=== PATIENT | female | born 1990 | race Caucasian/White ===

== ENCOUNTER → 2022-09-25 | Outpatient (CLI) | payer MEDICAID, SELFPAY ==
[2022-09-25 10:53] LABS: Absolute Lymphocyte Count 1.54 X10^3/uL (0.83-4.51); Absolute Neutrophil Count 3.2 X10^3/uL (2.0-7.7); Basophil# 0.03 X10^3/uL; Basophil% 0.6 % (0-1); Eosinophil# 0.08 X10^3/uL; Eosinophils% 1.5 % (0-5); Hemoglobin 13.6 g/dL (12.0-15.0); Lymphocyte # 1.54 X10^3/ul (0.83-4.51); Lymphocyte % 28.5 % (19-41); Mean Corp Hgb Conc 33.2 g/dL (32-36); Mean Corpuscular Hgb 31.3 pg (27.0-32.0); Mean Corpuscular Volume 94.5 fL (81-99); Mean Platelet Vol. 10.5 fl (6.2-12.0); Monocyte# 0.53 X10^3/uL; Monocyte% 9.8 % (0-10); NRBC Flagged by Analyzer 0 % (0-5); Neutrophil # 3.21 X10^3/uL (2.7-7.7); Neutrophil % 59.2 % (47-70); Platelet Count 240 K/mm3 (150-450); RBC Distribution Width CV 12.1 % (11.6-14.6); RBC Distribution Width SD 42.3 fl (35.1-43.9); Red Blood Count 4.34 M/mm3 (4.2-5.4); White Blood Count 5.4 K/mm3 (4.4-11.0)
[2022-09-25 11:00] LABS: Erythrocyte Sedimentation Rate 36 mm/hr (0-30)
[2022-09-25 11:19] LABS: AST(SGOT) 22 U/L (15-37); Alanine Aminotransfer ALT/SGPT 34 U/L (13-56); Albumin, Serum 3.9 g/dL (3.2-5.0); Alkaline Phosphatase 84 U/L (45-117); Amylase 38 U/L (25-115); Anion Gap 7 (5-15); BUN 12 mg/dL (7-18); BUN/Creat Ratio 17.9 RATIO (10-20); Chloride 105 mmol/L (98-107); Creatinine, Serum 0.67 mg/dL (0.55-1.02); EST Glomerular Filtration Rate 110 mL/min (>60); Est Glom Filt Rate - Afr Amer 133 mL/min (>60); Globulin 3.9 g/dL (2.2-4.2); Glucose 90 mg/dL (74-106); LDH 199 U/L (84-246); Lipase 116 U/L (73-393); Protein, Total 7.8 g/dL (6.4-8.2); Sodium Level 136 mmol/L (136-145)
[2022-09-27 16:08] LABS: Endomysial Antibody IgA Negative (Negative)
[2022-09-27 19:37] LABS: Immunoglobulin A 259 mg/dL (87-352); t-Transglutaminase IgA 3 U/mL (0-3)
[2022-09-30 15:07] LABS: Albumin 3.9 g/dL (2.9-4.4); Alpha-1-Globulins 0.3 g/dL (0.0-0.4); Alpha-2-Globulins 0.8 g/dL (0.4-1.0); Cytoplasmic Ab (C-ANCA) <1:20 titer (Neg:<1:20); Gamma Globulin 1.2 g/dL (0.4-1.8); Immunoglobulin A 268 mg/dL (87-352); Immunoglobulin E 14 IU/mL (6-495); Immunoglobulin G 1061 mg/dL (586-1602); Immunoglobulin M 142 mg/dL (26-217); PROEL- TOTAL PROTEIN 7.5 g/dL (6.0-8.5)
[2022-10-01 08:08] LABS: Alternaria alternata <0.10 kU/L (Class 0); Anti-Centromere B Ab <0.2 AI (0.0-0.9); Anti-Chromatin <0.2 AI (0.0-0.9); Anti-Jo <0.2 AI (0.0-0.9); Anti-Scleroderma-70 AB <0.2 AI (0.0-0.9); Aspergillus fumigatus <0.10 kU/L (Class 0); Bahia Grass <0.10 kU/L (Class 0); Beef <0.10 kU/L (Class 0); Bermuda Grass <0.10 kU/L (Class 0); Bluegrass, Kentucky <0.10 kU/L (Class 0); Cat Hair/Dander, Standard <0.10 kU/L (Class 0); Cedar, Mountain <0.10 kU/L (Class 0); Cladosporium herbarum <0.10 kU/L (Class 0); Cockroach, American <0.10 kU/L (Class 0); Corn <0.10 kU/L (Class 0); D farinae Mite <0.10 kU/L (Class 0); D pteronyssinus <0.10 kU/L (Class 0); Dog Epithelia <0.10 kU/L (Class 0); Egg, Whole <0.10 kU/L (Class 0); Elm, American White <0.10 kU/L (Class 0); Hazelnut Tree <0.10 kU/L (Class 0); Hickory, White <0.10 kU/L (Class 0); Johnson Grass <0.10 kU/L (Class 0); Maple/Box Elder <0.10 kU/L (Class 0); Milk (Cow) <0.10 kU/L (Class 0); Mucor racemosus <0.10 kU/L (Class 0); Mugwort <0.10 kU/L (Class 0); Mulberry, White <0.10 kU/L (Class 0); Nettle <0.10 kU/L (Class 0); Oak, White <0.10 kU/L (Class 0); Peanut <0.10 kU/L (Class 0); Penicillium chrysogen <0.10 kU/L (Class 0); Pigweed, Rough <0.10 kU/L (Class 0); Plantain, English <0.10 kU/L (Class 0); Pork <0.10 kU/L (Class 0); RNP Ab 0.3 AI (0.0-0.9); Ragweed, Short/Common <0.10 kU/L (Class 0); SJOGREN'S Anti-SS-A test < 0.2 AI (0.0-0.9); SJOGREN'S Anti-SS-B test < 0.2 AI (0.0-0.9); Sheep Sorrel(Dock) <0.10 kU/L (Class 0); Smith Ab <0.2 AI (0.0-0.9); Soybean <0.10 kU/L (Class 0); Stemphylium herbarum <0.10 kU/L (Class 0); Sweet Gum <0.10 kU/L (Class 0); Sycamore, American <0.10 kU/L (Class 0); Wheat <0.10 kU/L (Class 0)
[2022-10-01 14:53] LABS: Anti-dsDNA Ab 3 IU/mL (0-9); Chocolate <0.10 kU/L (Class 0)
[2022-10-01 15:11] LABS: Perinuclear Ab (P-ANCA) <1:20 titer (Neg:<1:20)
== END | disposition home or self-care (01) ==
LOC: LAB 10:13
PROVIDERS: PCP Student in an Organized Health Care Education/Training Program; Referring Provider Internal Medicine Gastroenterology; Visit Provider Internal Medicine Gastroenterology
DX: K62.5 Hemorrhage of anus and rectum (principal); R10.9 Unspecified abdominal pain
CPT/HCPCS: 36415; 80053; 82150; 82784; 82785; 83516; 83615; 83690; 84165; 85025; 85652; 86003; 86005; 86140; 86225; 86235; 86255; 86256; 86334

== ENCOUNTER → 2022-11-20 | Outpatient (CLI) | payer MEDICAID, SELFPAY ==
[2022-11-25 18:33] LABS: Pancreatic Elastase, Fecal 422 (>200)
== END | disposition home or self-care (01) ==
PROVIDERS: PCP Student in an Organized Health Care Education/Training Program; Referring Provider Internal Medicine Gastroenterology; Visit Provider Internal Medicine Gastroenterology
DX: K62.5 Hemorrhage of anus and rectum (principal); R10.9 Unspecified abdominal pain; K58.9 Irritable bowel syndrome, unspecified
CPT/HCPCS: 83993; 82653; 82705; 83630; 87177; 87209; 87329; 87493; 87506

== ENCOUNTER 2022-11-21 07:03 | Day surgery (SDC) | payer MEDICAID, SELFPAY ==
[2022-11-21 07:35] LABS: Internal QC Validated? YES +Cl - CLEAR BKGD; Pregnancy, Urine Negative Negative
[2022-11-21 07:39] VITALS: BP 134/88; PULSE 93; RESP 18; TEMP 36.3; O2SAT 97; BMI 62.7
[2022-11-21] MEDS: Lactated Ringers 1,000 ML 15 ML IV (07:42)
--- NOTE | 2022-11-21 08:09 | HP.PCM_ITS ---
History and Physical Date of Admission: 11/21/22 MARCIA ROSA, is a 32 F who presents to the office today for Initial consult. Marcia established with this clinic 09.25.22 with referral from PCP for upper abdominal discomfort/pain daily with postprandial abdominal cramping and loose stools. Stools are typically loose and occur 3-4 times a day: this has been ongoing for several years. Approximately once a month these symptoms intensity and rectal bleeding will be an issue: spontaneously resolves after several days. PCP started omeprazole which was unhelpful. She saw another GI who determined she does not have hemorrhoids, but did not help with symptoms. Elimination diets ineffective. CT abd/pel IV only at [facility] 05.14.20 without abnormality seen US abd 03.04.22 [facility] without acute/chronic abnormality. ROS Const Constitutional: No anorexia, fatigue, fever(s), weight change or sleep problems Eyes Eyes: No change in vision ENT ENT: No abnormal hearing, difficulty swallowing, mouth lesions, tongue swelling or throat swelling Resp Respiratory: No cough or shortness of breath Cardio Cardiology: No chest pain at rest, chest pain with exertion, shortness of breath or dyspnea on exertion Gastro GI: No difficulty swallowing Genitourinary-Female: No difficulty urinating or burning urination Musc Musculoskeletal: No joint pain, joint swelling, muscle weakness or decreased muscle mass Skin Skin: No hair loss in leg, yellowing of the eye, itchy eyes, rash, skin ulcer or skin swelling Neuro Neurology: No abnormal hearing, abnormal movements, confusion, unsteady gait/balance or memory loss Psych Psychiatric: No anxiety, No confusion and No memory loss Endo Endocrine: No fatigue or weight change Aller/Imm Allergy/Immunologic: No itchy eyes, throat swelling or tongue swelling Juan/Lymp Hematologic/Lymphatic: No easy bleeding, easy bruising or enlarged lymph nodes Exam Const General: cooperative and comfortable Nutritional Appearance: average body habitus and well nourished [facility] Head: normal to inspection Ears: hearing grossly normal bilaterally Nose: external nose normal Face and sinus: normal facial exam Mouth: oral mucosae normal Throat: posterior oropharynx normal Eyes General: appearance normal, both eyes and all related structures Neck Neck: normal visual inspection Chest Chest palpation & inspection: normal inspection of the chest and normal palpation of entire chest wall Resp Effort & Inspection: normal respiratory effort Auscultation: Bilateral: Clear to Auscultation Cardio Palpation: normal PMI Rate: regular rate Rhythm: regular rhythm GI Inspection: normal to inspection Auscultation: normal bowel sounds Percussion: normal to percussion Palpation: no hepatosplenomegaly Skin General: no rashes or lesions noted Neuro General: patient alert Extrem General: normal to inspection Psych Affect: normal affect Quality Reporting Tobacco Screening ([facility] 138) Smoking Status: Never smoker Assessment and Plan Assessment and Plan (1) Rectal bleeding: ?Status:?Chronic ?Plan: The differential diagnosis for her lower GI bleeding does include ulcerative colitis, ulcerative proctitis.? She does have psoriasis which does increase her risk of having ulcerative colitis.? She does not have any other rash.? She denies any eye symptoms.? She has no history of liver or pancreatic issues.? She does have mostly diarrhea on a daily basis which is worse with eating.? She does not know her family history in regards to anybody with any GI symptoms.? She does not take any blood thinners on a daily basis.? She has no history of blood clots.? She has a regular menstrual periods but is not on control.? She does not notice that her bleeding or diarrhea is worst during any particular time except with eating.? Her weight has been stable.? She has not had any surgeries.? She feels like her symptoms of diarrhea and lower GI bleeding are getting worse.? We will send her down for stool analysis to make sure there is no infectious enterocolitis or colitis.? We will also send her for a CBC to look for any signs of eosinophilia, ESR and CRP to make sure that there is no acute inflammation.? She will also undergo an EGD and colonoscopy for evaluation of her upper and lower GI tract with biopsies. (2) Abdominal pain: ?Status:?Chronic ?Plan: She is having upper GI symptoms that is refractory to omeprazole therapy.? The differential diagnosis for abdominal pain and gastroesophageal reflux disease would be bile induced gastritis.? Also there is a possibility of gluten enteropathy or celiac sprue disease.? She will get an upper endoscopy to evaluate her upper GI tract.? In the interim I will give her Levsin therapy on a scheduled basis in order to help her cramping and diarrhea symptoms.? I will also give her low-dose steroids to see if it has any improvement in her symptoms after she gives on stool test. ? ? ? Orders: Orders Comprehensive Metabolic Profil Today K62.5 - Hemorrhage of anus and rectum, R10.9 - Unspecified abdominal pain ? CRP Today K62.5 - Hemorrhage of anus and rectum, R10.9 - Unspecified abdominal pain ? LDH Today K62.5 - Hemorrhage of anus and rectum, R10.9 - Unspecified abdominal pain ? CBC W/Diff, Automated Today K62.5 - Hemorrhage of anus and rectum, R10.9 - Unspecified abdominal pain ? Erythrocyte Sed Rate Today K62.5 - Hemorrhage of anus and rectum, R10.9 - Unspecified abdominal pain ? ROSSY Comprehensive Panel Today K62.5 - Hemorrhage of anus and rectum, R10.9 - Unspecified abdominal pain ? Calprotectin, Stool Today K62.5 - Hemorrhage of anus and rectum, R10.9 - Unspecified abdominal pain ? Stool Lactoferrin/WBC Today K62.5 - Hemorrhage of anus and rectum, R10.9 - Unspecified abdominal pain ? ANCA Today K62.5 - Hemorrhage of anus and rectum, R10.9 - Unspecified abdominal pain ? Celiac Disease Profile Today K62.5 - Hemorrhage of anus and rectum, R10.9 - Unspecified abdominal pain ? Immunoglobulins G/A/M/E Today K62.5 - Hemorrhage of anus and rectum, R10.9 - Unspecified abdominal pain ? ABHI + Protein Elect, Serum Today K62.5 - Hemorrhage of anus and rectum, R10.9 - Unspecified abdominal pain ? Miscellaneous Lab Procedure Today K62.5 - Hemorrhage of anus and rectum, R10.9 - Unspecified abdominal pain ? Amylase Today K62.5 - Hemorrhage of anus and rectum, R10.9 - Unspecified abdominal pain ? Lipase Today K62.5 - Hemorrhage of anus and rectum, R10.9 - Unspecified abdomi nal pain ? Allergens, Zone 8 Today K62.5 - Hemorrhage of anus and rectum, R10.9 - Unspecified abdominal pain ? Allergen, Rast Food Profile Today K62.5 - Hemorrhage of anus and rectum, R10.9 - Unspecified abdominal pain ? Fecal Fat, Qualitative Today K62.5 - Hemorrhage of anus and rectum, R10.9 - Unspecified abdominal pain ? OVA+PARA w/Giardia EIA [id number] Today K62.5 - Hemorrhage of anus and rectum, R10.9 - Unspecified abdominal pain ? CDIFF (PCR) Today K62.5 - Hemorrhage of anus and rectum, R10.9 - Unspecified abdominal pain ? ENTERIC PATHOGEN PANEL STOOL Today K58.9 - Irritable bowel syndrome without diarrhea, K62.5 - Hemorrhage of anus and rectum, R10.9 - Unspecified abdominal pain ? Pancreatic Elastase, Fecal Today K62.5 - Hemorrhage of anus and rectum, R10.9 - Unspecified abdominal pain ? I have examined the patient and the H&P has been reviewed. There are no clinical changes since date of exam.
--- NOTE | 2022-11-21 08:15 | EGD_PTH ---
PATIENT: MARCIA ROSA LOC: EN U#:[id number] AGE/SX: 32/F ROOM: RE11/21/[address]: Dr. Piotr Carson DO : 1990 BED: DIS: 11/21/2022 SPEC #: [id number] RECD: 11/21/22 09:38 STATUS: CHARLEY REBlanche #: [id number] HEIDI: 11/21/22 08:[address]: Piotr Carson DEPT: SURGICAL PATHOLOGY RECD BY: Cherie Berumen ENTERED: 11/21/22 11:59 SP TYPE: EGD BIOPSY OT DR: Dr. Skip Quinones DO Tissues: A - Esophagus, NOS B - Ileum, NOS C - COLON BIOPSY Procedures: Special Stain Group II Surgery Specimen Level IV Alcian Blue/PAS (control) HEADER OPERATION: Colonoscopy, EGD ([facility] [place]) with biopsies PRE-OP DIAGNOSIS: Rectal bleeding, abdominal pain TISSUE SUBMITTED: A - Distal esophagus biopsy, B - Terminal ileum biopsy, C - Random colon biopsy MICROSCOPIC DIAGNOSIS A. Distal esophagus, biopsy: Fragment of gastric mucosa with chronic inflammation. No evidence of goblet cell metaplasia. See comment. B. Terminal ileum, biopsy: No pathologic change. C. Colon, random biopsy: No pathologic change. AM:chel 11/22/2022 COMMENT A. Alcian blue/PAS stain with matched control supports the above diagnosis. MICROSCOPIC DESCRIPTION Slides are reviewed. GROSS DESCRIPTION A - Received in fixative is one container labeled with the patient's name and designated distal esophagus biopsy. The specimen consists of one irregular fragment of light murphy soft tissue that measures 0.3 x 0.3 x 0.1 cm. The specimen is totally submitted in one cassette. B - Received in fixative is one container labeled with the patient's name and designated terminal ileum biopsy. The specimen consists of two irregular fragments of light murphy soft tissue that in aggregate measure 0.6 x 0.3 x 0.1 cm. The specimen is totally submitted in one cassette. C - Received in fixative is one container labeled with the patient's name and designated random colon biopsy. The specimen consists of multiple irregular fragments of light murphy soft tissue that in aggregate measure 0.8 x 0.6 x 0.1 cm. The specimen is totally submitted in one cassette. / IRENE:chel 11/21/2022 TC:3 CPT: 65432 x3, 95180
[2022-11-21 08:45] VITALS: BP 106/58; BP 134/88; PULSE 74; RESP 16; TEMP 36.3; O2SAT 99
--- NOTE | 2022-11-21 08:47 | OP.EGD_ITS ---
Patient Name: Srikanth Palacios Procedure Date: 11/21/2022 8:07 AM Date of : 1990 Age: 32 Procedure: Upper GI endoscopy Indications: Epigastric abdominal pain, Functional Dyspepsia Providers: Piotr Carson DO Referring MD: Skip Quinones Do Medicines: Monitored Anesthesia Care Patient Profile: This is a 32 year old female. Refer to note in patient chart for documentation of history and physical. Patient has symptoms of chronic abdominal cramping, chronic abdominal distention and acute global abdominal pain. Complications: No immediate complications. Procedure: Pre-Anesthesia Assessment: - Prior to the procedure, a History and Physical was performed, and patient medications and allergies were reviewed. The patient is competent. The risks and benefits of the procedure and the sedation options and risks were discussed with the patient. All questions were answered and informed consent was obtained. Patient identification and proposed procedure were verified by the physician in the pre-procedure area. Mental Status Examination: normal. Prophylactic Antibiotics: The patient does not require prophylactic antibiotics. Prior Anticoagulants: The patient has taken no previous anticoagulant or antiplatelet agents. ASA Grade Assessment: II - A patient with mild systemic disease. After reviewing the risks and benefits, the patient was deemed in satisfactory condition to undergo the procedure. The anesthesia plan was to use monitored anesthesia care (MAC). Immediately prior to administration of medications, the patient was re-assessed for adequacy to receive sedatives. The heart rate, respiratory rate, oxygen saturations, blood pressure, adequacy of pulmonary ventilation, and response to care were monitored throughout the procedure. The physical status of the patient was re-assessed after the procedure. After obtaining informed consent, the endoscope was passed under direct vision. Throughout the procedure, the patient's blood pressure, pulse, and oxygen saturations were monitored continuously. The pediatric colonoscope was introduced through the mouth, and advanced to the second part of duodenum. The upper GI endoscopy was accomplished without difficulty. The patient tolerated the procedure well. Scope In: 8:18:32 AM Scope Out: 8:21:12 AM Total Procedure Duration Time 0 hours 2 minutes 40 seconds Findings: LA Grade A (one or more mucosal breaks less than 5 mm, not extending between tops of 2 mucosal folds) esophagitis with no bleeding was found 35 to 36 cm from the incisors. Biopsies were taken with a cold forceps for histology. Verification of patient identification for the specimen was done. Estimated blood loss was minimal. No gross lesions were noted in the entire examined stomach. The cardia and gastric fundus were normal on retroflexion. No gross lesions were noted in the second portion of the duodenum. Impression: - LA Grade A reflux esophagitis. Biopsied. - No gross lesions in the stomach. - No gross lesions in the second portion of the duodenum. Recommendation: - Discharge patient to home. - Resume previous diet. - Continue present medications. - Await pathology results. Procedure Code(s): --- Professional --- 22963, Esophagogastroduodenoscopy, flexible, transoral; with biopsy, single or multiple CPT copyright 2017 [employer]. All rights reserved. The codes documented in this report are preliminary and upon lace inspector review may be revised to meet current compliance requirements. Piotr Carson DO 11/21/2022 8:47:08 AM This report has been signed electronically. Number of Addenda: 0 Note Initiated On: 11/21/2022 8:07 AM
--- NOTE | 2022-11-21 08:47 | OP.CCLET_ITS ---
11/21/2022 Skip Quinones Do Re : Upper GI endoscopy procedure for Srikanth Palacios Dear Stacie This procedure was performed on November. My impressions and recommendations are as follows: Impressions : - LA Grade A reflux esophagitis. Biopsied. - No gross lesions in the stomach. - No gross lesions in the second portion of the duodenum. Recommendations : - Discharge patient to home. - Resume previous diet. - Continue present medications. - Await pathology results. My findings are described in the full procedure note, which is enclosed. If I can be of further assistance, please feel free to contact me at . Sincerely, Piotr Carson DO 11/21/2022 8:47:08 AM This report has been signed electronically.
[2022-11-21 08:50] VITALS: BP 118/63; BP 134/88; PULSE 70; RESP 16; O2SAT 97
--- NOTE | 2022-11-21 08:50 | OP.COLON_ITS ---
Patient Name: Srikanth Palacios Procedure Date: 11/21/2022 8:21 AM Date of : 1990 Age: 32 Procedure: Colonoscopy Indications: Generalized abdominal pain, Clinically significant diarrhea of unexplained origin Providers: Piotr Carson DO Referring MD: Skip Quinones Do Medicines: Monitored Anesthesia Care Patient Profile: This is a 32 year old female. Refer to note in patient chart for documentation of history and physical. Patient has symptoms of chronic abdominal cramping, chronic abdominal distention and acute global abdominal pain. Last Colonoscopy: none. The patient's first colonoscopy is today. Complications: No immediate complications. Procedure: Pre-Anesthesia Assessment: - Prior to the procedure, a History and Physical was performed, and patient medications and allergies were reviewed. The patient is competent. The risks and benefits of the procedure and the sedation options and risks were discussed with the patient. All questions were answered and informed consent was obtained. Patient identification and proposed procedure were verified by the physician in the pre-procedure area. Mental Status Examination: normal. Prophylactic Antibiotics: The patient does not require prophylactic antibiotics. Prior Anticoagulants: The patient has taken no previous anticoagulant or antiplatelet agents. ASA Grade Assessment: II - A patient with mild systemic disease. After reviewing the risks and benefits, the patient was deemed in satisfactory condition to undergo the procedure. The anesthesia plan was to use monitored anesthesia care (MAC). Immediately prior to administration of medications, the patient was re-assessed for adequacy to receive sedatives. The heart rate, respiratory rate, oxygen saturations, blood pressure, adequacy of pulmonary ventilation, and response to care were monitored throughout the procedure. The physical status of the patient was re-assessed after the procedure. After I obtained informed consent, the scope was passed under direct vision. Throughout the procedure, the patient's blood pressure, pulse, and oxygen saturations were monitored continuously. The colonoscope was introduced through the anus and advanced to the terminal ileum. The colonoscopy was performed without difficulty. The patient tolerated the procedure well. The quality of the bowel preparation was adequate. Scope In: 8:25:17 AM Scope Withdrawal Time 0 hours 9 minutes 33 seconds Scope Out: 8:36:33 AM Total Procedure Duration Time 0 hours 11 minutes 16 seconds Findings: The perianal and digital rectal examinations were normal. An area of mildly congested mucosa was found in the sigmoid colon, at the hepatic flexure and in the ascending colon. Biopsies were taken with a cold forceps for histology. Verification of patient identification for the specimen was done. Estimated blood loss was minimal. The terminal ileum appeared normal. Biopsies were taken with a cold forceps for histology. Verification of patient identification for the specimen was done. Estimated blood loss was minimal. Impression: - Congested mucosa in the sigmoid colon, at the hepatic flexure and in the ascending colon. Biopsied. - The examined portion of the ileum was normal. Biopsied. Recommendation: - Discharge patient to home. - Resume previous diet. - Continue present medications. - Await pathology results. - Repeat colonoscopy in 5 years for surveillance based on pathology results. Procedure Code(s): --- Professional --- 80877, Colonoscopy, flexible; with biopsy, single or multiple CPT copyright 2017 [employer]. All rights reserved. The codes documented in this report are preliminary and upon peripatologist review may be revised to meet current compliance requirements. Piotr Carson DO 11/21/2022 8:50:11 AM This report has been signed electronically. Number of Addenda: 0 Note Initiated On: 11/21/2022 8:21 AM
--- NOTE | 2022-11-21 08:51 | OP.CCLET_ITS ---
11/21/2022 Skip Quinones Do Re : Colonoscopy procedure for Srikanth Palacios Dear Stacie This procedure was performed on November. My impressions and recommendations are as follows: Impressions : - Congested mucosa in the sigmoid colon, at the hepatic flexure and in the ascending colon. Biopsied. - The examined portion of the ileum was normal. Biopsied. Recommendations : - Discharge patient to home. - Resume previous diet. - Continue present medications. - Await pathology results. - Repeat colonoscopy in 5 years for surveillance based on pathology results. My findings are described in the full procedure note, which is enclosed. If I can be of further assistance, please feel free to contact me at . Sincerely, Piotr Carson, 11/21/2022 8:50:11 AM This report has been signed electronically.
[2022-11-21 08:55] VITALS: BP 121/82; BP 134/88; PULSE 80; RESP 16; O2SAT 100
[2022-11-21 09:00] VITALS: BP 114/86; BP 134/88; PULSE 73; RESP 16; TEMP 37.1; O2SAT 100
[2022-11-21 09:20] VITALS: BP 134/88
== END 2022-11-21 09:27 | disposition home or self-care (01) ==
LOC: EN 07:07 → AC 07:07
PROVIDERS: Anesthesiology; PCP Student in an Organized Health Care Education/Training Program; Referring Provider Student in an Organized Health Care Education/Training Program; Visit Provider Internal Medicine Gastroenterology
PROC: 0DJD8ZZ Inspection of Lower Intestinal Tract, Via Natural or Artificial Opening Endoscopic (ICD-10-PCS; CPT 45378; principal; 2022-11-21 08:10)
DX: K21.00 Gastro-esophageal reflux disease with esophagitis, without bleeding (principal); R19.7 Diarrhea, unspecified; L40.9 Psoriasis, unspecified; R10.84 Generalized abdominal pain; G89.29 Other chronic pain
CPT/HCPCS: 45380; 43239; 81025; 88305; 88313; J7120; J2405

== ENCOUNTER → 2023-01-15 | Outpatient (CLI) | payer MEDICAID, SELFPAY ==
--- NOTE | 2023-01-15 11:55 | NM_ITS ---
CLINICAL: 32-year-old female with history of postprandial abdominal pain. SEMI-SOLID PHASE 99m Tc SULFUR COLLOID GASTRIC EMPTYING STUDY COMPARISON: None available FINDINGS: The patient was administered 1.0 mCi of 99m Tc sulfur colloid mixed with oatmeal and consumed per os. Image acquisitions in the anterior-posterior projections were obtained for 60 minutes. There is prompt visualization of the stomach. There is no gastroesophageal reflux identified. The T ? raw data emptying was calculated to be 37.26 minutes, (Normal: 12-56 minutes). NM/Gastric Emptying Study IMPRESSION: 1. NORMAL 99m Tc sulfur colloid semi-solid phase (oatmeal) gastric emptying imaging examination. A. There is normal and preserved semi-solid phase gastric emptying compared to normal controls. (Oliver et al, J Nucl Med Tech 38: 186, 2010). Electronically Signed: Edinson Araujo, at 22:37 EDT ,
== END | disposition home or self-care (01) ==
LOC: NM 11:50
PROVIDERS: PCP Student in an Organized Health Care Education/Training Program; Referring Provider Internal Medicine Gastroenterology; Visit Provider Internal Medicine Gastroenterology
DX: R10.9 Unspecified abdominal pain (principal)
CPT/HCPCS: 78264; A9541

== ENCOUNTER → 2023-01-29 | Outpatient (CLI) | payer MEDICAID, SELFPAY ==
--- NOTE | 2023-01-29 09:09 | MRI_ITS ---
STUDY: MR ENTEROGRAPHY WITH CONTRAST REASON FOR EXAM: Female, 32 years old. K50.90 - Crohn''s disease, unspecified, without complications TECHNIQUE: Multipulse sequence MRI performed with IV contrast according to standard MR enterography protocol following administration of oral contrast for maximal bowel distention. Images were obtained from the dome of the diaphragm to the symphysis pubis. 32 ML IV CLARISCAN was administered intravenously. TECHNICAL QUALITY: Image Quality: Satisfactory Small Bowel Distension: Adequate. COMPARISON: None. FINDINGS: Bowel: Bowel wall thickening: Absent. Skip lesions: None. Vascularity: Normal. Enhancement: Normal. Fistula: None. Abscess: None. Other Findings: Base of the chest is unremarkable. Normal liver. Normal gallbladder and extrahepatic biliary system. Normal spleen. Normal pancreas. Normal bilateral adrenal glands. Simple, nonenhancing cysts. No required imaging follow-up needed given high likelihood of benign nature. No colon wall thickening. Normal abdominal aorta. Normal interior vena cava. Normal retroperitoneum. Normal urinary bladder. Normal abdominal wall. No bone marrow edema. MRI/Enterography Abd/Pel IMPRESSION: Normal MR enterography. Electronically Signed: Hector Louie (Brooks), at 14:02 EDT ,
[2023-01-29 09:58] VITALS: BP 176/103; RESP 18; TEMP 37.1; O2SAT 96; BMI 61.7
[2023-01-29] MEDS: 0.9% Saline Lock 10 ML Syringe IV (10:10)
[2023-01-29] MEDS: Glucagon 1 MG/ML Syringe IV (10:59)
[2023-01-29 11:16] VITALS: BP 165/103; RESP 18
== END | disposition home or self-care (01) ==
LOC: MRI 09:09
PROVIDERS: PCP Student in an Organized Health Care Education/Training Program; Referring Provider Internal Medicine Gastroenterology; Visit Provider Internal Medicine Gastroenterology
DX: K50.90 Crohn's disease, unspecified, without complications (principal)
CPT/HCPCS: 74183; 96374; A9575; A4216; J1610

== ENCOUNTER 2023-04-12 12:39 | Emergency (ER) | payer MEDICAID, SELFPAY ==
[2023-04-12 12:40] VITALS: BP 167/110; PULSE 94; RESP 14; TEMP 36.6; O2SAT 98
--- NOTE | 2023-04-12 12:57 | EKG12_ITS ---
Test Reason : CP Blood Pressure : / mmHG Vent. Rate : 081 BPM Atrial Rate : 081 BPM P-R Int : 154 ms QRS Dur : 096 ms QT Int : 354 ms P-R-T Axes : 033 -10 003 degrees QTc Int : 411 ms Normal sinus rhythm Minimal voltage criteria for LVH, may be normal variant ( R in aVL ) Borderline ECG Confirmed by ROBBIE SAINI, NAHOMY ([id number]), editor house organ SAAD BRENNAN ([id number]) on 04/14/2023 1:16:41 PM Referred By: Daniele Juarez Confirmed By:NAHOMY AVALOS MD
--- NOTE | 2023-04-12 13:00 | ED.VIS.CHEST ---
HPI <DREAD Rudd - Last Filed: 04/12/23 15:47> History of Present Illness Chief Complaint: Chest Pain Narrative Narrative: Patient presenting today with left-sided chest pain that she has had for the past few hours. She describes it as dull pain but when she tries to lift something or moves her arms she feels a sharp pain in that area. Taking deep breaths or coughing makes the pain worse. She denies any history of blood clots, recent surgery/procedures, recent immobilization, oral contraceptive use x-ray. She denies any shortness of breath, fever, chills abdominal pain, nausea, vomiting. She denies any history of any personal cardiac conditions or history of early cardiac events in her family. PFSH <DREAD Rudd - Last Filed: 04/12/23 15:47> PFSH Medical History Alcohol use Anxiety Decreased GFR Depression Gastric reflux Heartburn History of GI bleed History of steroid therapy Injury of head and neck Marijuana use MRSA infection Nausea and vomiting Non-smoker Sleep apnea Thyromegaly Wears glasses Home Medications sertraline 100 mg tablet 150 mg PO DAILY 01/29/23 [History Last Taken Unknown] prazosin 1 mg capsule 1 mg PO DAILY 04/12/23 [History Last Taken Unknown] Allergy/AdvReac Type Severity Reaction Status Date / Time labetalol [Labetalol] Allergy Itching Verified 04/12/23 12:40 sulfamethoxazole Allergy Other Verified 04/12/23 12:40 [From Bactrim] trimethoprim [From Bactrim] Allergy Other Verified 04/12/23 12:40 Family History Mother Alcohol abuse Depression Drug abuse Osteoporosis Seizures Father Alcohol abuse Drug abuse Surgical History H/O section H/O dilation and curettage History of tonsillectomy and adenoidectomy Social History Smoking Status: Never smoker alcohol intake: current alcohol intake frequency: a few times a week substance use type: marijuana ROS <DREAD Rudd - Last Filed: 04/12/23 15:47> ROS ED Constitutional Constitutional ED: Denies chills or fever(s) Cardiovascular Cardiovascular: Reports chest pain; Denies palpitations or racing heartbeat Respiratory/Chest Respiratory/Chest: Denies cough, dyspnea or dyspnea on exertion Gastrointestinal Gastrointestinal: Denies abdominal pain, nausea or vomiting Musculoskeletal Musculoskeletal: Reports myalgias; Denies arthralgias Integumentary Denies abscess, Abrasions or rash Neurologic Neurologic: Denies weakness EXAM <DREAD Rudd - Last Filed: 04/12/23 15:47> Physical Exam Const Vital Signs: 04/12/23 12:40 04/12/23 14:40 Temperature 98 F Temperature Source Temporal Pulse Rate 94 Respiratory Rate 14 18 Blood Pressure 167/110 H Blood Pressure Mean 129 Pulse Ox 98 Oxygen Delivery Method Room Air Room Air Positive well nourished, well developed and no apparent distress General Appearance ED: well developed HEENT Reports normocephalic and head/scalp atraumatic Mouth ED: Yes moist mucous membranes normal Eyes PERRL and EOMs intact bilaterally Neck full ROM and supple Chest Wall inspection of chest normal Chest Narrative: Left-sided chest wall tenderness to palpation. Resp normal respiratory effort and clear to auscultation bilaterally Cardio regular rate and regular rhythm GI soft to palpation, non-tender, non-distended and no masses Back/Spine normal ROM and normal to inspection Extremity normal to inspection and full ROM Neuro oriented x3, CN's II-XII intact bilaterally, moves all extremities, no focal motor deficits and no sensory deficits noted Sensorium / Orientation: awake and alert Psych mental status grossly normal and thought process normal Skin no rashes or lesions noted and no wounds <Dr. Daniele Juarez MD - Last Filed: 04/12/23 15:20> Physical Exam Const Vital Signs: 04/12/23 12:40 04/12/23 14:40 Temperature 98 F Temperature Source Temporal Pulse Rate 94 Respiratory Rate 14 18 Blood Pressure 167/110 H Blood Pressure Mean 129 Pulse Ox 98 Oxygen Delivery Method Room Air Room Air MDM <DREAD Rudd - Last Filed: 04/12/23 15:47> MDM MDM Narrative Medical decision making narrative: Patient presenting today with left sided chest pain that is worsened with moving her arms, lifting, deep breathing, or coughing. She does have tenderness to palpation across the left chest wall. She is PERC negative. Vitals are unremarkable aside from elevated blood pressure. EKG obtained and is normal sinus rhythm. Chest x-ray obtained to rule out infiltrate, pneumothorax and is negative for any acute findings. I do not feel that this is cardiac in nature, exam is consistent with costochondritis or a chest wall strain. She is to ice her chest several times a day for the next few days and take ibuprofen for pain. She will be discharged home in stable condition and is comfortable with plan. She is to follow-up with her PCP and has been given return instructions. I have personally performed a face to face assessment of the patient and have reviewed the ABDIAZIZ Note. I performed a substantive portion of the visit including all aspects of the following. My ortiz findings include: History is [33-year-old female Past medical history. Complaining of left-sided chest discomfort several hours ago. Denies any fall injury or trauma. No history of cardiac disease. No recent exertional chest pain or exertional dyspnea. No history of DVT or PE risk factors. She denies any recent travel surgery immobilization. No pleuritic pain. No hemoptysis. No leg pain or swelling. No significant family history of cardiac disease or blood clots.] Exam is [well-appearing 33-year-old female. Vital signs stable afebrile. Pulse ox 98% on room air no signs hypoxia. HEENT exam unremarkable. Neck nontender no JVD. Lungs clear to auscultation bilaterally. Heart regular rhythm no murmur rate about 90. Chest wall there is reproducible left parasternal chest wall discomfort consistent with a chest wall strain or costochondritis. There is no ecchymosis or bruising. No subcu air crepitus. No redness or warmth. Abdomen is soft nontender. Moving all 4 extremities. Calves are nontender without edema or cords. Radial pulses are equal and symmetrical. Neurologically she is awake and alert.] Medical Decison Making [33-year-old with a history and exam consistent with either costochondritis or chest wall strain. EKG and chest x-ray are unremarkable. She will be discharged home. Ice to the area Motrin for pain.] Other additions or changes: [None] Radiography Diagnostic Testing: Clinical Impression(s) from Imaging Studies Chest X-Ray 04/12/23 13:05 IMPRESSION: No acute cardiopulmonary process identified. Electronically Signed: Chasidy Skinner MD at 13:44 EDT , EKG Initial EKG: Comments: 81 bpm, normal sinus rhythm, no ST elevation, no signs of cardiac ischemia, reviewed and interpreted by attending ED physician. <Dr. Daniele Juarez MD - Last Filed: 04/12/23 15:20> [facility] MDM Narrative Medical decision making narrative: I have personally performed a face to face assessment of the patient and have reviewed the ABDIAZIZ Note. I performed a substantive portion of the visit including all aspects of the following. My ortiz findings include: History is [33-year-old female Past medical history. Complaining of left-sided chest discomfort several hours ago. Denies any fall injury or trauma. No history of cardiac disease. No recent exertional chest pain or exertional dyspnea. No history of DVT or PE risk factors. She denies any recent travel surgery immobilization. No pleuritic pain. No hemoptysis. No leg pain or swelling. No significant family history of cardiac disease or blood clots.] Exam is [well-appearing 33-year-old female. Vital signs stable afebrile. Pulse ox 98% on room air no signs hypoxia. HEENT exam unremarkable. Neck nontender no JVD. Lungs clear to auscultation bilaterally. Heart regular rhythm no murmur rate about 90. Chest wall there is reproducible left parasternal chest wall discomfort consistent with a chest wall strain or costochondritis. There is no ecchymosis or bruising. No subcu air crepitus. No redness or warmth. Abdomen is soft nontender. Moving all 4 extremities. Calves are nontender without edema or cords. Radial pulses are equal and symmetrical. Neurologically she is awake and alert.] Medical Decison Making [33-year-old with a history and exam consistent with either costochondritis or chest wall strain. EKG and chest x-ray are unremarkable. She will be discharged home. Ice to the area Motrin for pain.] Other additions or changes: [None] History & Record Review Discussion w/independent historian: Patient Radiography Chest X-Ray - ED: 1 View, Read by ED Physician, Normal, Heart, Lungs, Mediastinum, Bony Structures and No Acute Disease Diagnostic Testing: Clinical Impression(s) from Imaging Studies Chest X-Ray 04/12/23 13:05 IMPRESSION: No acute cardiopulmonary process identified. Electronically Signed: Chasidy Skinner MD at 13:44 EDT Reading Location ID and State: [facility] / [place] Tel , Service support , Chest x-ray, portable, single view shows no acute. Normal cardiac silhouette. Normal mediastinum. No cardiomegaly. Interpreted by myself and the radiologist. Rhythm Strip Rhythm Strip: Sinus Rhythm Rate: 81 Ectopy: None EKG Initial EKG: Attestation: I personally reviewed and interpreted this EKG as follows: Interpretation: Sinus Rhythm and No Acute Injury Pattern Discharge Plan Triage Chief Complaint: Chest Pain ED Midlevel Provider: Samantha Davis ED Provider: Daniele Juarez Dx/Rx/DC Orders Clinical Impression: Chest wall pain, Costochondritis Instructions: ED Chest Wall Pain, Costochondritis Prescriptions: No Action sertraline 100 mg Tablet 150 mg PO DAILY prazosin 1 mg capsule 1 mg PO DAILY Primary Care Provider: Skip Quinones Referrals: Skip Quinones DO [Primary Care Provider] - 3-5 Days Activity Restrictions/Additional Instructions: Alternate Tylenol and ibuprofen for your pain, ice your chest times a day for the next few days. Follow-up with your PCP and return for any worsening of symptoms. Disposition Disposition: Home, Self Care Discharge Date/Time: 04/12/23 15:23
--- NOTE | 2023-04-12 13:05 | RAD_ITS ---
HISTORY: chest pain. TECHNIQUE: XR Chest 1 View. COMPARISON: None. FINDINGS: CARDIOMEDIASTINAL BORDERS: Cardiac silhouette within normal limits in size. Mediastinal contour unremarkable. LUNGS: Radiographically clear. PLEURA: No pleural effusion or pneumothorax seen. OSSEOUS STRUCTURES: Unremarkable. RAD/Chest 1 View (Portable) IMPRESSION: No acute cardiopulmonary process identified. Electronically Signed: Chasidy Skinner MD at 13:44 EDT ,
[2023-04-12 13:30] VITALS: BMI 63.3
[2023-04-12 14:40] VITALS: RESP 18
== END 2023-04-12 15:23 | disposition home or self-care (01) ==
PROVIDERS: Emergency Provider Emergency Medicine; PCP Student in an Organized Health Care Education/Training Program; Referring Provider Emergency Medicine; Visit Provider Emergency Medicine
DX: R07.89 Other chest pain (principal); M94.0 Chondrocostal junction syndrome [Tietze]; R03.0 Elevated blood-pressure reading, without diagnosis of hypertension; Z79.899 Other long term (current) drug therapy
CPT/HCPCS: 71045; 93005; 99282

== ENCOUNTER → 2023-04-23 | Outpatient (CLI) | payer MEDICAID, SELFPAY ==
[2023-04-23 17:49] LABS: Erythrocyte Sedimentation Rate 27 mm/hr (0-30)
== END | disposition home or self-care (01) ==
LOC: LAB 16:17
PROVIDERS: PCP Student in an Organized Health Care Education/Training Program; Referring Provider Internal Medicine Gastroenterology; Visit Provider Internal Medicine Gastroenterology
DX: R10.9 Unspecified abdominal pain (principal); K50.90 Crohn's disease, unspecified, without complications; K62.5 Hemorrhage of anus and rectum
CPT/HCPCS: 36415; 85652; 86003; 86005; 86140

== ENCOUNTER 2025-03-26 10:43 | Outpatient (CLI) | payer MEDICAID, SELFPAY ==
[2025-03-26 11:00] VITALS: BMI 57.5
[2025-03-26] MEDS: LACTATED RINGERS 500 ML 999 ML IV (11:30)
[2025-03-26 11:35] LABS: Hematocrit 32.1 % (37-47); Hemoglobin 10.9 g/dL (12.0-15.0); Mean Corpuscular Hgb 31.9 pg (27.0-32.0); Mean Corpuscular Volume 93.9 fL (81-99); Mean Platelet Vol. 10.1 fl (6.2-12.0); Platelet Count 317 K/mm3 (150-450); RBC Distribution Width CV 12.2 % (11.6-14.6); RBC Distribution Width SD 42.2 fl (35.1-43.9); Red Blood Count 3.42 M/mm3 (4.2-5.4)
--- NOTE | 2025-03-26 11:39 | NURSING ---
pt here today with complaints of a headache, she is post op c section 5 days ago. IV and labs drawn, bp q 15 min, and a LR bolus of 500cc infusing at this time. Pt's support person states that pt always states she feels better when standing. Pt laid flat and she states she doesnt really feel a difference in head pain laying flat she states it pulls on the incision and makes that area very uncomfortable. Pt's returned to an upright position.
[2025-03-26 12:13] LABS: Uric Acid 5.6 mg/dL (2.6-6.0)
[2025-03-26 12:14] LABS: AST(SGOT) 33 U/L (<=31); Alanine Aminotransfer ALT/SGPT 25 U/L (<=34); Creatinine, Serum 0.69 mg/dL (0.70-1.20); EST Glomerular Filtration Rate 117 (>60); Estimated Creatinine Clearance 171.44 ml/min (50-250)
[2025-03-26] MEDS: Caffeine 200 MG Tablet 400 MG PO (12:30)
[2025-03-26 12:36] LABS: Protein:Creat Ratio 138 mg/g CRE (0-200)
--- NOTE | 2025-03-26 13:02 | NURSING ---
Lab values reported to Patricia DUVAL I have also discussed with anesthesia about a spinal headache pt is having I was told by pt will have to return to the hospital she had her c section at to get a blood patch, this was related back to the pt and her . Pt discharged at 1250
--- NOTE | 2025-03-26 20:35 | OB.TRI.NOTE ---
HPI - General HPI Narrative MARCIA ROSA, is a 35 F who presents 5 days post section for headache, and elevated blood pressures at home. She delivered at [facility] due to BMI>50. She reports blood pressures at home ranging 150-160/100's. She reports that headache has been constant since discharge home 2 days ago. PFSH PFS Medical History Alcohol use Anxiety Decreased GFR Depression Gastric reflux Heartburn History of GI bleed History of steroid therapy Injury of head and neck Marijuana use MRSA infection Nausea and vomiting Non-smoker Sleep apnea Thyromegaly Wears glasses Home Medications ?Medication ?Instructions ?Recorded ?Last Taken ?Type sertraline 100 mg tablet 150 mg PO DAILY 01/29/23 Unknown History prazosin 1 mg capsule 1 mg PO DAILY 04/12/23 Unknown History Allergy/AdvReac Type Severity Reaction Status Date / Time labetalol (Labetalol) Allergy Itching Verified 03/26/25 11:20 sulfamethoxazole (From Allergy Other Verified 03/26/25 11:20 Bactrim) trimethoprim (From Bactrim) Allergy Other Verified 03/26/25 11:20 Family History Mother Alcohol abuse Depression Drug abuse Osteoporosis Seizures Father Alcohol abuse Drug abuse Surgical History H/O section H/O dilation and curettage History of tonsillectomy and adenoidectomy Social History Smoking Status: Never smoker alcohol intake: current alcohol intake frequency: a few times a week substance use type: marijuana History Elective abortions Hx Para 0 Spontaneous abortions Hx # Term Pregnancies Ectopic pregnancies Hx # Pregnancies Multiple births # of living children ROS Eyes Eyes: Denies blurry vision Cardiovascular Cardiovascular: Reports none; Denies chest pain at rest, chest pain with activity or dizziness Respiratory/Chest Respiratory/Chest: Denies cough or dyspnea Gastrointestinal Gastrointestinal: Reports none and other; Denies diarrhea or vomiting Genitourinary Genitourinary: Denies dysuria Musculoskeletal Musculoskeletal: Reports none Integumentary Integumentary: Reports none; Denies rash Neurologic Neurologic: Denies other visual disturbances Psychiatric Psychiatric: Reports none Physical Exam Const alert and no apparent distress General Appearance: cooperative Orientation / Consciousness: awake Exam Limitations: no limitations HEENT normocephalic Eyes General Eye: normal appearance of both eyes Neck full ROM Chest inspection of chest normal Resp normal respiratory effort and normal air movement Effort and Inspection: symmetric chest movement Auscultation: clear to auscultation bilaterally Cardio regular rate GI soft to palpation, non-tender and non-distended Inspection: and other Back/Spine normal ROM Extremity full ROM, normal capillary refill and no calf tenderness Skin no rashes or lesions noted Neuro oriented x3 and CN's II-XII intact bilaterally Psych mental status grossly normal Assessment & Plan (1) Post-operative pain: (2) Status post delivery: (3) headache: PLAN: Plan Start IV and give 500 cc bolus PIH labs- normal BP monitoring- normal/ no severe range pressures Suspect spinal headache Consulted with anesthesia-Patient will need to go to hospital that she delivered at for evaluation for possible blood patch Caffeine 400 mg PO X1 now D/C home with follow up in office
== END 2025-03-26 12:50 | disposition home or self-care (01) ==
LOC: WPOUT 10:46 → WP 10:46
PROVIDERS: PCP Student in an Organized Health Care Education/Training Program; Referring Provider Advanced Practice Midwife; Visit Provider Advanced Practice Midwife
DX: O99.893 Other specified diseases and conditions complicating puerperium (principal); R51.9 Headache, unspecified; R03.0 Elevated blood-pressure reading, without diagnosis of hypertension
CPT/HCPCS: 96360; 36415; 82565; 82570; 84156; 84450; 84460; 84550; 85027; 99221; G0378